=== PATIENT | female | born 1965 ===

== ENCOUNTER 2016-07-04 17:41 | Emergency (ER) | payer MEDICAID ==
[2016-07-04 17:45] VITALS: BMI 14.4
[2016-07-04 17:48] VITALS: O2SAT 100
[2016-07-04] MEDS: Albuterol-Ipratrop 3 mg / 0.5 (3 ml) UD IH SCH ×5 (17:50→18:48)
[2016-07-04] MEDS: Albuterol-Ipratrop 3 mg / 0.5 (3 ml) UD ONE ×2 (17:50→18:23)
--- NOTE | 2016-07-04 17:50 | ED PDOC ---
Arrival/HPI - General Chief Complaint: Shortness Of Breath Time Seen by Provider: 07/04/16 17:41 Historian: Patient - History of Present Illness Narrative History of Present Illness (Text): 07/04/16 17:56 50 year old female whose past medical history includes asthma, thyroid issue, presents to the emergency department with shortness of breath. She states she used her pump with no improvement. c/o of dry cough, and mild sore throat. She states this feels like previous asthma symptoms. No other complaints. 07/04/16 20:00 Time/Duration: < week Symptom Onset: Gradual Symptom Course: Unchanged Modifying Factors (Text): Used pump with no improvement Associated Symptoms (Text): None Past Medical History - Provider Review Nursing Documentation Reviewed: Yes - Infectious Disease Hx of Infectious Diseases: None - Reproductive Menopause: Yes - Cardiac Hx Cardiac Disorders: No - Pulmonary Hx Respiratory Disorders: Yes Hx Asthma: Yes - Neurological Hx Neurological Disorder: No - HEENT Hx HEENT Disorder: No - Renal Hx Renal Disorder: No - Endocrine/Metabolic Hx Endocrine Disorders: Yes Hx Hypothyroidism: Yes - Hematological/Oncological Hx Blood Disorders: No - Integumentary Hx Dermatological Disorder: No - Musculoskeletal/Rheumatological Hx Musculoskeletal Disorders: Yes Hx Back Pain: Yes Hx Herniated Disk: Yes - Gastrointestinal Hx Gastrointestinal Disorders: No - Genitourinary/Gynecological Hx Genitourinary Disorders: No - Psychiatric Hx Psychophysiologic Disorder: No Hx Substance Use: No - Surgical History Hx Dilation and Curettage: Yes Hx Thyroidectomy: Yes - Anesthesia Hx Anesthesia: Yes Hx Anesthesia Reactions: No Hx Malignant Hyperthermia: No - Suicidal Assessment Feels Threatened In Home Enviroment: No Family/Social History - Physician Review Nursing Documentation Reviewed: Yes Family/Social History: Unknown Family HX Smoking Status: Current Some Days Smoker Hx Alcohol Use: No Hx Substance Use: No Allergies/Home Meds Allergies/Adverse Reactions: Allergies tetracycline Allergy (Verified 07/04/16 17:45) RASH vancomycin Allergy (Verified 07/04/16 17:45) RASH Home Medications: Home Meds Medication Instructions Recorded Confirmed Albuterol 0.5% [Albuterol 0.5% 0.5 % IH Q4 PRN 07/04/16 07/04/16 Inhal Afsaneh (2.5 mg/0.5 ml) UD] Albuterol HFA [Ventolin HFA 90 1 puff INH BID 07/04/16 07/04/16 mcg/actuation (8 g)] Review of Systems - Physician Review All systems were reviewed & negative as marked: Yes - Review of Systems Respiratory: SOB Gastrointestinal: absent: Abdominal Pain Neurological: absent: Headache, Dizziness Physical Exam Vital Signs Reviewed: Yes Vital Signs Pulse Resp BP Pulse Ox 07/04/16 17:55 100 07/04/16 17:47 77 14 123/79 100 Temperature: Afebrile Blood Pressure: Normal Pulse: Regular Respiratory Rate: Normal Appearance: Positive for: Well-Appearing, Non-Toxic, Comfortable Pain Distress: None Mental Status: Positive for: Alert and Oriented X 3 - Systems Exam Head: Present: Atraumatic, Normocephalic Pupils: Present: PERRL Extroacular Muscles: Present: EOMI Conjunctiva: Present: Normal Mouth: Present: Moist Mucous Membranes Pharnyx: Present: ERYTHEMA. No: EXUDATE, TONSILS ENLARGED, Peritonsilar Swelling, Uvular Deviation, Muffled/Hoarse Voice, Strider, Soft Palate/Uvular Edema Neck: Present: Normal Range of Motion, Lymphadenopathy, Trachea Midline. No: Meningeal Signs, MIDLINE TENDERNESS, Paraspinal Tenderness, JVD, Bruit Respiratory/Chest: Present: Good Air Exchange, Wheezes (scattered), Decreased Breath Sounds. No: Respiratory Distress, Accessory Muscle Use Cardiovascular: Present: Regular Rate and Rhythm, Normal S1, S2. No: Murmurs Abdomen: Present: Normal Bowel Sounds. No: Tenderness, Distention, Peritoneal Signs Back: Present: Normal Inspection Upper Extremity: Present: Normal Inspection. No: Cyanosis, Edema Lower Extremity: Present: Normal Inspection. No: Edema Neurological: Present: GCS=15, CN II-XII Intact, Speech Normal Skin: Present: Warm, Dry, Normal Color. No: Rashes Psychiatric: Present: Alert, Oriented x 3, Normal Insight, Normal Concentration Medical Decision Making ED Course and Treatment: Impression: 50 year old female whose past medical history includes asthma, thyroid issue, presents to the emergency department with shortness of breath. Differential Diagnosis include but are not limited to: Asthma exacerbation Plan: -- EKG, Chest X-ray -- Duoneb, SoluMedrol -- Labs -- Reassess and disposition Prior Visits: Notes and results from previous visits were reviewed. Patient last seen in ED on 03/26/16 for abdominal pain and discharged home. Progress Notes: Patient is PERC negative. 07/04/16 18:52 Patient reassessed. Wheezing improving. 07/04/16 19:52 pt reassesed. weheezing resolved. perc neg. watching tv in nad. 07/04/16 19:59 pt reports peristent dysphagia, no unilateral swelling, no hot potato voice, uvula midline. suspect tender lymphadeopathy. pt offered ct imaging, declines, prefers to go home, and return with worsening. 07/04/16 20:06 pt has nebulizers at home, does not need rx. - Lab Interpretations Lab Results: 07/04/16 18:05 07/04/16 18:05 Lab Results 07/04/16 18:40: Urine Color Yellow, Urine Appearance Clear, Urine pH 7.0, Ur Specific [place] 1.010, Urine Protein Negative, Urine Glucose (UA) Negative, Urine Ketones Negative, Urine Blood Negative, Urine Nitrate Negative, Urine Bilirubin Negative, Urine Urobilinogen 0.2, Ur Leukocyte Esterase Negative, Urine HCG, Qual Negative 07/04/16 18:05: Sodium 141, Potassium 3.7, Chloride 102, Carbon Dioxide 29, Anion Gap 14, BUN 14, Creatinine 0.7, Est GFR ( Amer) > 60, Est GFR (Non- Af Amer) > 60, Random Glucose 124 H, Calcium 9.5, Magnesium 1.9, Total Bilirubin 0.5, AST 38, ALT 49, Alkaline Phosphatase 92, Lactate Dehydrogenase 450, Total Creatine Kinase 74, Troponin I < 0.01, Total Protein 8.1, Albumin 4.2 , Globulin 3.9, Albumin/Globulin Ratio 1.1 07/04/16 18:05: PT 10.7, INR 0.99, APTT 24.3 07/04/16 18:05: WBC 5.9, RBC 4.59, Hgb 12.5, Hct 36.8, MCV 80.2, MCH 27.2, MCHC 34.0, RDW 12.9, Plt Count 277, MPV 9.6, Gran % 52.0, Lymph % (Auto) 41.9 H, [place] % (Auto) 4.3, Eos % (Auto) 1.5, Baso % (Auto) 0.3, Gran # 3.05, Lymph # 2.5 , [place] # 0.3, Eos # 0.1, Baso # 0.02 - RAD Interpretation Radiology Orders: 07/04/16 17:56 CHEST PORTABLE [RAD] Stat - EKG Interpretation EKG Interpretation (Text): EKG shows NSR at [address]/T wave changes. Interpreted by me. Interpreted by ED Physician: Yes Type: 12 lead EKG - Medication Orders Current Medication Orders: Discontinued Medications Albuterol/Ipratropium (Duoneb 3 Mg/0.5 Mg (3 Ml) Ud) Confirm Administered Dose 3 ml .ROUTE .STK-MED ONE Stop: 07/04/16 17:45 Last Admin: 07/04/16 18:23 Dose: Albuterol/Ipratropium (Duoneb 3 Mg/0.5 Mg (3 Ml) Ud) 3 ml IH Q15M SEPIDEH Stop: 07/04/16 18:31 Last Admin: 07/04/16 18:48 Dose: 3 ml Ketorolac Tromethamine (Toradol) 30 mg IVP STAT STA Stop: 07/04/16 18:52 Last Admin: 07/04/16 19:12 Dose: 30 mg Methylprednisolone (Solu-Medrol) 125 mg IVP STAT STA Stop: 07/04/16 17:58 Last Admin: 07/04/16 18:10 Dose: 125 mg Ondansetron HCl (Zofran Inj) Confirm Administered Dose 4 mg .ROUTE .STK-MED ONE Stop: 07/04/16 18:17 Last Admin: 07/04/16 18:19 Dose: Ondansetron HCl (Zofran Inj) 4 mg IVP STAT STA Stop: 07/04/16 18:18 Last Admin: 07/04/16 18:19 Dose: 4 mg - Scribe Statement The provider has reviewed the documentation as recorded by the Bassam Briseno Provider Scribe Attestation: All medical record entries made by the Bassam were at my direction and personally dictated by me. I have reviewed the chart and agree that the record accurately reflects my personal performance of the history, physical exam, medical decision making, and the department course for this patient. I have also personally directed, reviewed, and agree with the discharge instructions and disposition. Disposition/Present on Arrival - Present on Arrival Any Indicators Present on Arrival: No History of DVT/PE: No History of Uncontrolled Diabetes: No Urinary Catheter: No History of Decub. Ulcer: No History Surgical Site Infection Following: None - Disposition Have Diagnosis and Disposition been Completed?: Yes Diagnosis: Asthma Disposition: HOME/ ROUTINE Disposition Time: 19:54 Patient Problems: Current Active Problems Problem Status Onset Asthma Acute Condition: STABLE Discharge Instructions (ExitCare): Asthma (ED) Additional Instructions: please follow up with your doctor. return to er with worsening symptoms or concerns. Prescriptions: Prednisone 50 mg PO DAILY #5 tablet Referrals: [facility] [Outside] - Follow up with primary [facility] [Outside] - Follow up with primary
[2016-07-04 18:15] LABS: ADD MANUAL DIFF? NO
[2016-07-04 18:21] LABS: BASO # 0.02 K/mm3 (0.0-2.0); BASO % 0.3 % (0.0-3.0); EOS # 0.1 (0.0-0.7); EOS % 1.5 % (1.5-5.0); GRAN # 3.05 (1.4-6.5); HEMATOCRIT 36.8 % (36.0-48.0); LYMPH # 2.5 (1.2-3.4); LYMPH % 41.9 % (22.0-35.0); MEAN CELL VOLUME 80.2 fL (80.0-105.0); MEAN CORPUSCULAR HEMOGLOBIN 27.2 pg (25.0-35.0); MEAN PLATELET VOLUME 9.6 fl (7.0-11.0); MONO # 0.3 (0.1-0.6); MONO % 4.3 % (1.0-6.0); PLATELET COUNT 277 10^3/uL (120.0-450.0); RED CELL DISTRIBUTION WIDTH 12.9 % (11.5-14.5); WHITE BLOOD COUNT 5.9 10^3/ul (4.5-11.0)
[2016-07-04 18:27] LABS: ALB/GLOB RATIO 1.1 (1.1-1.8); ALKALINE PHOSPHATASE 92 U/L (38-133); ALT/SGPT 49 U/L (7-56); AST/SGOT 38 U/L (15-39); BILIRUBIN,TOTAL 0.5 mg/dL (0.2-1.3); BLOOD UREA NITROGEN 14 mg/dL (7-21); CALCIUM 9.5 mg/dL (8.4-10.5); CARBON DIOXIDE 29 mmol/L (21-33); CHLORIDE 102 mmol/L (98-107); GFR AFRICAN-AMERICAN > 60; GLUCOSE,RANDOM 124 mg/dL (70-110); MAGNESIUM 1.9 mg/dL (1.7-2.2); POTASSIUM 3.7 mmol/L (3.6-5.0); SODIUM 141 mmol/L (132-148); TOTAL PROTEIN 8.1 g/dL (5.8-8.3)
[2016-07-04 18:29] LABS: INR 0.99 (0.93-1.08); PARTIAL THROMBOPLASTIN TIME 24.3 Seconds (23.7-30.8)
[2016-07-04 18:46] LABS: TROPONIN I < 0.01 ng/mL
[2016-07-04 19:09] LABS: URINE APPEARANCE CLEAR (CLEAR); URINE BILIRUBIN NEGATIVE (NEGATIVE); URINE BLOOD NEGATIVE (NEGATIVE); URINE COLOR YELLOW (YELLOW); URINE GLUCOSE (UA) NEGATIVE (NEGATIVE); URINE KETONE NEGATIVE (NEGATIVE); URINE LEUKOCYTE ESTERASE NEGATIVE Leu/uL (NEGATIVE); URINE PROTEIN NEGATIVE mg/dL (<30 mg/dL); URINE UROBILINOGEN 0.2 E.U./dL (<1 E.U./dL)
[2016-07-04 20:15] VITALS: BP 114/68; PULSE 87; RESP 16
--- NOTE | 2016-07-05 06:58 | RAD ---
HISTORY: sob COMPARISON: No prior. FINDINGS: LUNGS: No active pulmonary disease. PLEURA: No significant pleural effusion identified, no pneumothorax apparent. CARDIOVASCULAR: Normal. OSSEOUS STRUCTURES: No significant abnormalities. VISUALIZED UPPER ABDOMEN: Normal. OTHER FINDINGS: None. IMPRESSION: No active disease.
--- NOTE | 2016-07-05 14:57 | CARD ---
APPROVED REPORT EKG Measurement Heart [id number] <Conclusion> Normal sinus rhythm Normal ECG
== END 2016-07-04 20:15 | disposition home or self-care (01) ==
LOC: ED 17:41
DX: J45.909 Unspecified asthma, uncomplicated (principal); Z72.0 Tobacco use
CPT/HCPCS: 71010; 80053; 81003; 82550; 83615; 83735; 84484; 84703; 85025; 85610; 85730; 93005; 96374; 96375; 99284; J1885; J2405; J2930

== ENCOUNTER 2016-09-01 09:36 | Emergency (ER) | payer MEDICAID ==
[2016-09-01 09:38] VITALS: BMI 14.4
[2016-09-01 09:49] VITALS: BP 107/74; PULSE 80; RESP 16; TEMP 98.8; O2SAT 98
[2016-09-01] MEDS ORDERED: Sodium Chloride 0.9% 1,000 ML IV STA (09:50)
--- NOTE | 2016-09-01 09:51 | ED PDOC ---
Arrival/HPI - General Chief Complaint: GI Problem Time Seen by Provider: 09/01/16 09:50 Historian: Patient - History of Present Illness Narrative History of Present Illness (Text): 09/01/16 09:51 51 y/o female, pmh including asthma/lumbar radiculopathy, allergic to tetracycline and vancomycin, c/o bodyache and diarrhea started yesterday. Pt. stated that she started to get diarrhea last night, didn't eat anything unusal or eating outside the restaurant for the past 2 days, no recent traveling or use of antibiotic for the past 6 weeks, no coughing or night sweat, admits that she feels fatigue from the diarrhea, no chest pain or shortness of breath, no night sweat, no urinary symptoms, no other medical or psychological complaints. Past Medical History - Provider Review Nursing Documentation Reviewed: Yes - Infectious Disease Hx of Infectious Diseases: None - Reproductive Menopause: Yes - Cardiac Hx Atrial Fibrillation: No Hx Hypertension: Yes - Pulmonary Hx Asthma: Yes Hx Sleep Apnea: Yes (QUESTIONABLE) - Neurological Hx Alzheimer's Disease: No Hx Dementia: No Hx Migraine: No Hx Multiple Sclerosis: No Hx Parkinson's Disease: No Hx Seizures: No Hx Transient Ischemic Attacks (TIA): No - HEENT Hx HEENT Disorder: No - Renal Hx Renal Disorder: No Hx Kidney Stones: No - Endocrine/Metabolic Hx Hyperthyroidism: Yes (multinodular goiters) Hx Hypothyroidism: Yes - Hematological/Oncological Hx Anemia: No Hx Sickle Cell Disease: No - Integumentary Hx Dermatological Disorder: No - Musculoskeletal/Rheumatological Hx Arthritis: No Hx Fractures: No Hx Osteoporosis: No Hx Rheumatoid Arthritis: No - Gastrointestinal Hx Gall Bladder Disease: Yes (GALLSTONES s/p LAP TAJ about 6 yrs ago) - Genitourinary/Gynecological Hx Sexually Transmitted Diseases: No - Psychiatric Hx Anxiety: No Hx Bipolar Disorder: No Hx Depression: No Hx Post Traumatic Stress Disorder: No Hx Schizophrenia: No Hx Substance Use: No - Surgical History Hx Cholecystectomy: Yes - Anesthesia Hx Anesthesia: Yes Hx Anesthesia Reactions: No Hx Malignant Hyperthermia: No - Suicidal Assessment Feels Threatened In Home Enviroment: No Family/Social History - Physician Review Nursing Documentation Reviewed: Yes Family/Social History: Unknown Family HX Smoking Status: Current Some Days Smoker Hx Alcohol Use: No Hx Substance Use: No Allergies/Home Meds Allergies/Adverse Reactions: Allergies tetracycline Allergy (Verified 09/01/16 09:47) RASH vancomycin Allergy (Verified 09/01/16 09:47) RASH Review of Systems - Review of Systems Constitutional: Fatigue. absent: Fevers Eyes: absent: Vision Changes ENT: absent: Hearing Changes Respiratory: absent: SOB, Cough Cardiovascular: absent: Chest Pain Gastrointestinal: Diarrhea. absent: Abdominal Pain, Nausea, Vomiting Musculoskeletal: Myalgias. absent: Arthralgias, Back Pain Skin: absent: Rash, Pruritis Neurological: absent: Headache, Dizziness Psychiatric: absent: Anxiety, Depression Physical Exam Vital Signs Reviewed: Yes Vital Signs Temp Pulse Resp BP Pulse Ox 09/01/16 09:43 98.8 F 80 16 107/74 98 Temperature: Afebrile Blood Pressure: Normal Pulse: Regular Respiratory Rate: Normal Appearance: Positive for: Well-Appearing, Non-Toxic, Comfortable Pain Distress: None Mental Status: Positive for: Alert and Oriented X 3 - Systems Exam Head: Present: Atraumatic, Normocephalic Pupils: Present: PERRL Extroacular Muscles: Present: EOMI Conjunctiva: Present: Normal Mouth: Present: Moist Mucous Membranes Neck: Present: Normal Range of Motion Respiratory/Chest: Present: Clear to Auscultation, Good Air Exchange. No: Respiratory Distress, Accessory Muscle Use Cardiovascular: Present: Regular Rate and Rhythm, Normal S1, S2. No: Murmurs Abdomen: Present: Normal Bowel Sounds. No: Tenderness, Distention, Peritoneal Signs, Rebound, Guarding Back: Present: Normal Inspection. No: CVA Tenderness Upper Extremity: Present: Normal Inspection, NORMAL PULSES. No: Cyanosis, Edema Lower Extremity: Present: Normal Inspection, NORMAL PULSES. No: Edema Neurological: Present: GCS=15, Speech Normal, Motor Func Grossly Intact, Gait Normal, Memory Normal Skin: Present: Warm, Dry, Normal Color. No: Rashes Psychiatric: Present: Alert, Oriented x 3, Normal Insight, Normal Concentration Medical Decision Making ED Course and Treatment: 09/01/16 09:51 -labs/ua -IVF/pepcid -Urine hcg -observe and reassess 09/01/16 10:44 -Labs are non-significant -UA show no UTI -Urine hcg negative -Pt. feeling much better, abdominal examination is still soft with no tenderness or guarding, no clinical indication of the radiology studies at this time. -Discharge home with pepcid, tylenol BRAT diet, no alcohol for 5 days, no fried/ grilled/spicy food for 5 days, soft food diet, stay hydrated, follow up with your own pmd and GI within 2 days, return to the ER for any new or worsening signs or symptoms. - Lab Interpretations Lab Results: 09/01/16 10:07 09/01/16 10:07 Lab Results 09/01/16 10:07: Urine Color Light yellow, Urine Appearance Clear, Urine pH 6.5, Ur Specific [place] <= 1.005, Urine Protein Negative, Urine Glucose (UA) Negative, Urine Ketones Negative, Urine Blood Trace-intact H, Urine Nitrate Negative, Urine Bilirubin Negative, Urine Urobilinogen 0.2, Ur Leukocyte Esterase Negative, Urine RBC 0 - 2, Urine WBC 0 - 2, Ur Epithelial Cells 0 - 2, Urine Bacteria Trace, Urine HCG, Qual Negative 09/01/16 10:07: Sodium 138, Potassium 3.6, Chloride 104, Carbon Dioxide 25, Anion Gap 13, BUN 10, Creatinine 0.6, Est GFR ( Amer) > 60, Est GFR (Non- Af Amer) > 60, Random Glucose 91, Calcium 8.8, Total Bilirubin 0.6, AST 65 H, ALT 73 H, Alkaline Phosphatase 111, Total Protein 7.6, Albumin 4.1, Globulin 3.5 , Albumin/Globulin Ratio 1.2 09/01/16 10:07: WBC 4.0 L D, RBC 4.84, Hgb 13.1, Hct 39.0, MCV 80.6, MCH 27.1, MCHC 33.6, RDW 13.1, Plt Count 235, MPV 9.6, Gran % 70.9 H, Lymph % (Auto) 20.7 L, [place] % (Auto) 6.7 H, Eos % (Auto) 1.5, Baso % (Auto) 0.2, Gran # 2.84, Lymph # 0.8 L, [place] # 0.3, Eos # 0.1, Baso # 0.01 I have reviewed the lab results: Yes - Medication Orders Current Medication Orders: Discontinued Medications Famotidine (Pepcid) 20 mg IVP STAT STA Stop: 09/01/16 09:52 Last Admin: 09/01/16 10:08 Dose: 20 mg Sodium Chloride (Sodium Chloride 0.9%) 1,000 mls @ 999 mls/hr IV .Q1H1M STA Stop: 09/01/16 10:50 Last Admin: 09/01/16 10:05 Dose: 999 mls/hr - PA / CLIENT TECHNOLOGIES ANALYST / Resident Statement / has reviewed & agrees with the documentation as recorded. Disposition/Present on Arrival - Present on Arrival Any Indicators Present on Arrival: No History of DVT/PE: No History of Uncontrolled Diabetes: No Urinary Catheter: No History of Decub. Ulcer: No History Surgical Site Infection Following: None - Disposition Have Diagnosis and Disposition been Completed?: Yes Diagnosis: Gastroenteritis Disposition: HOME/ ROUTINE Disposition Time: 10:25 Patient Plan: Discharge Condition: IMPROVED Additional Instructions: Discharge home with pepcid, tylenol BRAT diet, no alcohol for 5 days, no fried/ grilled/spicy food for 5 days, soft food diet, stay hydrated, follow up with your own pmd and GI within 2 days, return to the ER for any new or worsening signs or symptoms. Prescriptions: Acetaminophen [Tylenol 325mg tab] 2 tab PO QID #35 tab Famotidine [Pepcid] 20 mg PO BID #14 tab Referrals: PCP,NO [Primary Care Provider] - Follow up with primary Kendell Dunlap MD [Staff Provider] - Follow up with primary [facility] [place] [Outside] - Follow up with primary Forms: WORK NOTE
[2016-09-01 10:20] LABS: BASO # 0.01 K/mm3 (0.0-2.0); BASO % 0.2 % (0.0-3.0); EOS # 0.1 (0.0-0.7); EOS % 1.5 % (1.5-5.0); GRAN # 2.84 (1.4-6.5); GRAN % 70.9 % (50.0-68.0); HEMOGLOBIN 13.1 gm/dL (12.0-16.0); LYMPH # 0.8 (1.2-3.4); LYMPH % 20.7 % (22.0-35.0); MEAN CELL VOLUME 80.6 fL (80.0-105.0); MEAN CORPUSCULAR HEMOGLOBIN 27.1 pg (25.0-35.0); MEAN CORPUSCULAR HGB CONC 33.6 g/dl (31.0-37.0); MEAN PLATELET VOLUME 9.6 fl (7.0-11.0); MONO # 0.3 (0.1-0.6); MONO % 6.7 % (1.0-6.0); PLATELET COUNT 235 10^3/uL (120.0-450.0); RBC 4.84 10^6/uL (3.5-6.1); RED CELL DISTRIBUTION WIDTH 13.1 % (11.5-14.5)
[2016-09-01 10:21] LABS: PH,URINE 6.5 (4.7-8.0); URINE BILIRUBIN NEGATIVE (NEGATIVE); URINE BLOOD TRACE-INTACT (NEGATIVE); URINE GLUCOSE (UA) NEGATIVE (NEGATIVE); URINE LEUKOCYTE ESTERASE NEGATIVE Leu/uL (NEGATIVE); URINE NITRATE NEGATIVE (NEGATIVE); URINE PROTEIN NEGATIVE mg/dL (<30 mg/dL); URINE UROBILINOGEN 0.2 E.U./dL (<1 E.U./dL)
[2016-09-01 10:25] LABS: URINE APPEARANCE CLEAR (CLEAR); URINE COLOR LIGHT YELLOW (YELLOW)
[2016-09-01 10:28] LABS: URINE BACTERIA TRACE (NEG); URINE EPITHELIAL CELLS 0 - 2 /hpf (0-5); URINE RBC 0 - 2 /hpf (0-2); URINE WBC 0 - 2 /hpf (0-6)
[2016-09-01 10:29] LABS: ALB/GLOB RATIO 1.2 (1.1-1.8); ALBUMIN 4.1 g/dL (3.0-4.8); ALT/SGPT 73 U/L (7-56); AST/SGOT 65 U/L (15-39); BLOOD UREA NITROGEN 10 mg/dL (7-21); CALCIUM 8.8 mg/dL (8.4-10.5); GFR AFRICAN-AMERICAN > 60; GFR NON-AFRICAN AMERICAN > 60
[2016-09-01 10:59] LABS: HCG,QUALITATIVE URINE NEGATIVE (NEGATIVE)
== END 2016-09-01 11:13 | disposition home or self-care (01) ==
LOC: ED 09:36
DX: K52.9 Noninfective gastroenteritis and colitis, unspecified (principal)
CPT/HCPCS: 80053; 81001; 84703; 85025; 96374; 99284; J7040

== ENCOUNTER 2017-04-17 14:46 | Inpatient (IN) | payer BC, MEDICAID ==
[2017-04-17 15:34] VITALS: BMI 22.7
[2017-04-17 17:49] LABS: URINE BILIRUBIN NEGATIVE (NEGATIVE); URINE BLOOD NEGATIVE (NEGATIVE); URINE GLUCOSE (UA) NEGATIVE (NEGATIVE); URINE LEUKOCYTE ESTERASE NEGATIVE Leu/uL (NEGATIVE); URINE NITRATE NEGATIVE (NEGATIVE); URINE PROTEIN NEGATIVE mg/dL (<30 mg/dL); URINE UROBILINOGEN 0.2 E.U./dL (<1 E.U./dL)
[2017-04-17 17:52] LABS: URINE APPEARANCE CLEAR (CLEAR); URINE COLOR YELLOW (YELLOW)
--- NOTE | 2017-04-17 20:03 | CT ---
EXAM: CT Abdomen and Pelvis Without Intravenous Contrast EXAM DATE/TIME: 04/17/2017 4:28 PM CLINICAL HISTORY: The patient age is 51 years old and is female; Pain; Abdominal pain; Flank; Right; Prior surgery; Surgery date: 6+ months; Surgery type: HX cholecystectomy, HX tubal ligation; Additional info: Right flank pain Facility exam id and description: Ct abdpelscon abd pelvis w/o po or iv cont TECHNIQUE: Axial computed tomography images of the abdomen and pelvis without intravenous contrast. All CT scans at this facility use one or more dose reduction techniques, viz.: automated exposure control; ma/kV adjustment per patient size (including targeted exams where dose is matched to indication; i.e. head); or iterative reconstruction technique. Coronal and sagittal reformatted images were created and reviewed. COMPARISON: No relevant prior studies available. FINDINGS: Lower thorax: No acute findings. ABDOMEN: Liver: Unremarkable. No mass. Gallbladder and bile ducts: Cholecystectomy clips are visualized. Pancreas: Normal contour. No ductal dilation. Spleen: There is lobulation of the spleen versus a small splenule. No splenomegaly. Adrenals: No mass. Kidneys and ureters: There is an 8mm nonobstructing right renal calculus. There is no hydronephrosis bilaterally. No obstructive calculi are identified within the ureters bilaterally. Stomach and bowel: Colonic diverticula are identified, without acute inflammatory stranding of the adjacent mesentery. Appendix: No findings to suggest acute appendicitis. PELVIS: Bladder: No stones. Reproductive: A calcification or clip is seen within each adnexa. ABDOMEN and PELVIS: Intraperitoneal space: There is a small surgical clip within the left posterior inferior pelvis. Bones/joints: Mild degenerative changes are visualized within the lumbar spine. Soft tissues: There is minimal herniation of fat within the umbilicus. Vasculature: There is minimal atherosclerosis of the aortic arch. No abdominal aortic aneurysm. Lymph nodes: No enlarged lymph nodes. IMPRESSION: 1. There is an 8mm nonobstructing right renal calculus. There is no hydronephrosis bilaterally. No obstructive calculi are identified within the ureters bilaterally. 2. Diverticulosis. 3. Incidental/non-acute findings are described above.
[2017-04-17] MEDS ORDERED: Sodium Chloride 0.9% 1,000 ML IV STA (20:11)
--- NOTE | 2017-04-17 21:37 | ED PDOC ---
Arrival/HPI - General Chief Complaint: Back Pain Time Seen by Provider: 04/17/17 15:58 Historian: Patient - History of Present Illness Narrative History of Present Illness (Text): 04/17/17 21:33 51yo female with PMhx of hypothyroid who present with one week history of right flank pain with associated nausea. Stats pain became increasingly worse. Sharp and constant. she saw her PMD today and was referred to the ED. She denies vomiting , hematuria, dysuria, urinary frequency, fever, chills, any other complaint. Past Medical History - Provider Review Nursing Documentation Reviewed: Yes - Infectious Disease Hx of Infectious Diseases: None - Reproductive Menopause: Yes - Cardiac Hx Cardiac Disorders: No - Pulmonary Hx Respiratory Disorders: Yes Hx Asthma: Yes Hx Sleep Apnea: Yes (QUESTIONABLE) - Neurological Hx Alzheimer's Disease: No Hx Dementia: No Hx Migraine: No Hx Multiple Sclerosis: No Hx Parkinson's Disease: No Hx Seizures: No Hx Transient Ischemic Attacks (TIA): No - HEENT Hx HEENT Disorder: No - Renal Hx Renal Disorder: No Hx Kidney Stones: No - Endocrine/Metabolic Hx Endocrine Disorders: Yes Hx Hyperthyroidism: Yes (multinodular goiters) Hx Hypothyroidism: Yes - Hematological/Oncological Hx Anemia: No Hx Sickle Cell Disease: No - Integumentary Hx Dermatological Disorder: No - Musculoskeletal/Rheumatological Hx Arthritis: No Hx Fractures: No Hx Osteoporosis: No Hx Rheumatoid Arthritis: No - Gastrointestinal Hx Gastrointestinal Disorders: Yes Hx Gall Bladder Disease: Yes (GALLSTONES s/p LAP TAJ about 6 yrs ago) - Genitourinary/Gynecological Hx Genitourinary Disorders: No Hx Sexually Transmitted Diseases: No - Psychiatric Hx Psychophysiologic Disorder: No Hx Anxiety: No Hx Bipolar Disorder: No Hx Depression: No Hx Post Traumatic Stress Disorder: No Hx Schizophrenia: No Hx Substance Use: No - Surgical History Hx Cholecystectomy: Yes Hx Tubal Ligation: Yes - Anesthesia Hx Anesthesia: Yes Hx Anesthesia Reactions: No Hx Malignant Hyperthermia: No - Suicidal Assessment Feels Threatened In Home Enviroment: No Family/Social History - Physician Review Nursing Documentation Reviewed: Yes Family/Social History: Unknown Family HX Smoking Status: Current Some Days Smoker Hx Alcohol Use: No Hx Substance Use: No Allergies/Home Meds Allergies/Adverse Reactions: Allergies tetracycline Allergy (Verified 04/17/17 15:34) RASH vancomycin Allergy (Verified 04/17/17 15:34) RASH Home Medications: Home Meds Medication Instructions Recorded Confirmed Levothyroxine [Synthroid] 500 mcg PO DAILY 04/17/17 04/17/17 Review of Systems - Physician Review All systems were reviewed & negative as marked: Yes - Review of Systems Constitutional: Normal Eyes: Normal ENT: Normal Respiratory: Normal Cardiovascular: Normal Gastrointestinal: Abdominal Pain (Right flank) Genitourinary Female: Normal Musculoskeletal: Back Pain Skin: Normal Neurological: Normal Endocrine: Normal Hemo/Lymphatic: Normal Psychiatric: Normal Physical Exam Vital Signs Reviewed: Yes Vital Signs Temp Pulse Resp BP Pulse Ox 04/17/17 23:17 70 18 142/98 H 100 04/17/17 21:39 68 16 121/82 98 04/17/17 17:53 62 16 126/89 98 04/17/17 15:29 98.5 F 71 16 125/80 98 Temperature: Afebrile Blood Pressure: Normal Pulse: Regular Respiratory Rate: Normal Appearance: Positive for: Well-Appearing, Non-Toxic, Comfortable Pain Distress: None Mental Status: Positive for: Alert and Oriented X 3 - Systems Exam Head: Present: Atraumatic, Normocephalic Pupils: Present: PERRL Extroacular Muscles: Present: EOMI Conjunctiva: Present: Normal Mouth: Present: Moist Mucous Membranes Neck: Present: Normal Range of Motion Respiratory/Chest: Present: Clear to Auscultation, Good Air Exchange. No: Respiratory Distress, Accessory Muscle Use Cardiovascular: Present: Regular Rate and Rhythm, Normal S1, S2. No: Murmurs Abdomen: Present: Tenderness (Right flank), Normal Bowel Sounds, Other (Soft). No: Distention, Peritoneal Signs, Rebound, Guarding, McBurney's Point Tender, Rovsing's Sign Present Back: Present: CVA Tenderness (Right) Upper Extremity: Present: Normal Inspection. No: Cyanosis, Edema Lower Extremity: Present: Normal Inspection. No: Edema Neurological: Present: GCS=15, CN II-XII Intact, Speech Normal Skin: Present: Warm, Dry, Normal Color. No: Rashes Psychiatric: Present: Alert, Oriented x 3, Normal Insight, Normal Concentration Medical Decision Making ED Course and Treatment: 04/18/17 01:22 PT in ED for stated history. Lab was unremarkable. On re evaluation pt continued to complain of pain after medication was given. Lab was unremarkable. Pt was hydrated. abdominal/Pelvis CT. IMPRESSION: 1. There is an 8mm nonobstructing right renal calculus. There is no hydronephrosis bilaterally. No obstructive calculi are identified within the ureters bilaterally. 2. Diverticulosis. 3. Incidental/non-acute findings are described above. PT will be admitted secondary to her continued pain complain and CT finding. Case was [facility] [place] and pt was admitted Case was also [facility] Result and plan was D the pt and she agreed - Lab Interpretations Lab Results: 04/17/17 21:30 04/17/17 21:30 Lab Results 04/17/17 21:30: PT 11.3, INR 0.99, APTT 31.7 04/17/17 21:30: Sodium 141, Potassium 3.6, Chloride 102, Carbon Dioxide 28, Anion Gap 15, BUN 10, Creatinine 0.8, Est GFR ( Amer) > 60, Est GFR (Non- Af Amer) > 60, Random Glucose 91, Calcium 9.9, Total Bilirubin 0.4, AST 42 H, ALT 50, Alkaline Phosphatase 90, Total Protein 8.2, Albumin 4.6, Globulin 3.6, Albumin/Globulin Ratio 1.3 04/17/17 21:30: WBC 6.1 D, RBC 5.02, Hgb 13.9, Hct 41.6, MCV 82.9, MCH 27.7, MCHC 33.4, RDW 13.3, Plt Count 311, MPV 9.6, Gran % 46.5 L, Lymph % (Auto) 44.3 H, [place] % (Auto) 6.6 H, Eos % (Auto) 2.3, Baso % (Auto) 0.3, Gran # 2.83, Lymph # (Auto) 2.7, [place] # (Auto) 0.4, Eos # (Auto) 0.1, Baso # (Auto) 0.02 04/17/17 18:00: Urine HCG, Qual Negative 04/17/17 18:00: Beta HCG, Quant < 2.39 04/17/17 17:30: Urine Color Yellow, Urine Appearance Clear, Urine pH 6.0, Ur Specific [place] 1.010, Urine Protein Negative, Urine Glucose (UA) Negative, Urine Ketones Negative, Urine Blood Negative, Urine Nitrate Negative, Urine Bilirubin Negative, Urine Urobilinogen 0.2, Ur Leukocyte Esterase Negative - RAD Interpretation Radiology Orders: 04/17/17 16:28 ABD & PELVIS W/O PO OR IV CONT [CT] Stat - Medication Orders Current Medication Orders: Acetaminophen (Tylenol 325mg Tab) 650 mg PO QID SEPIDEH Famotidine (Pepcid) 20 mg PO BID SEPIDEH Famotidine (Pepcid) 20 mg PO ONCE ONE Stop: 04/18/17 01:31 Ketorolac Tromethamine (Toradol) 15 mg IVP TID SEPIDEH Levothyroxine Sodium (Synthroid) 500 mcg PO DAILY SEPIDEH Discontinued Medications Sodium Chloride (Sodium Chloride 0.9%) 1,000 mls @ 999 mls/hr IV .Q1H1M STA Stop: 04/17/17 21:11 Last Admin: 04/17/17 21:48 Dose: 999 mls/hr eMAR Start Stop Document 04/17/17 21:48 AD (Rec: 04/17/17 21:49 AD [id number]) Intravenous Solution Start Date 04/17/17 Start Time 21:49 Sodium Chloride (Sodium Chloride 0.9%) 1,000 mls @ 999 mls/hr IV .Q1H1M STA Stop: 04/18/17 01:03 Ketorolac Tromethamine (Toradol) 60 mg IM STAT STA Stop: 04/17/17 16:30 Last Admin: 04/17/17 18:39 Dose: 60 mg MAR Pain Assessment Document 04/17/17 18:39 SF (Rec: 04/17/17 18:40 SF [id number]) Pain Reassessment Is this a pain reassessment? Yes Sleep Is patient sleeping during reassessment? No Presence of Pain Presence of Pain Yes Pain Scale Used Pain Scale Used Numeric IM Administration Charges Document 04/17/17 18:39 SF (Rec: 04/17/17 18:40 SF [facility] [id number]) Injection Site MAR Injection Site Left Deltoid Charges for Administration # of IM Administrations 1 Morphine Sulfate (Morphine) 4 mg IVP STAT STA Stop: 04/17/17 21:51 Last Admin: 04/17/17 22:51 Dose: 4 mg MAR Pain Assessment Document 04/17/17 22:51 SS (Rec: 04/17/17 22:51 SS [id number]) Pain Reassessment Is this a pain reassessment? Yes Sleep Is patient sleeping during reassessment? No Presence of Pain Presence of Pain Yes IVP Administration Document 04/17/17 22:51 SS (Rec: 04/17/17 22:51 SS [id number]) Charges for Administration # of IVP Administrations 1 Ondansetron HCl (Zofran Inj) 4 mg IVP STAT STA Stop: 04/18/17 00:49 Last Admin: 04/18/17 01:02 Dose: 4 mg IVP Administration Document 04/18/17 01:02 BR (Rec: 04/18/17 01:02 BR [id number]) Charges for Administration # of IVP Administrations 1 Disposition/Present on Arrival - Present on Arrival Any Indicators Present on Arrival: No History of DVT/PE: No History of Uncontrolled Diabetes: No Urinary Catheter: No History of Decub. Ulcer: No History Surgical Site Infection Following: None - Disposition Have Diagnosis and Disposition been Completed?: Yes Diagnosis: Nephrolithiasis Disposition: HOSPITALIZED Disposition Time: 22:00 Patient Plan: Admission Patient Problems: Current Active Problems Problem Status Onset Nephrolithiasis Acute Condition: FAIR
[2017-04-17] MEDS ORDERED: Morphine 4 mg/ml ISec IVP STA (21:50)
[2017-04-17 21:59] LABS: BASO # 0.02 K/mm3 (0.0-2.0); BASO % 0.3 % (0.0-3.0); EOS # 0.1 (0.0-0.7); EOS % 2.3 % (1.5-5.0); GRAN # 2.83 (1.4-6.5); GRAN % 46.5 % (50.0-68.0); HEMOGLOBIN 13.9 g/dL (12.0-16.0); LYMPH # 2.7 (1.2-3.4); LYMPH % 44.3 % (22.0-35.0); MEAN CELL VOLUME 82.9 fl (80.0-105.0); MEAN CORPUSCULAR HEMOGLOBIN 27.7 pg (25.0-35.0); MEAN CORPUSCULAR HGB CONC 33.4 g/dl (31.0-37.0); MEAN PLATELET VOLUME 9.6 fl (7.0-11.0); MONO # 0.4 (0.1-0.6); MONO % 6.6 % (1.0-6.0); RBC 5.02 10^6/uL (3.5-6.1); RED CELL DISTRIBUTION WIDTH 13.3 % (11.5-14.5); WHITE BLOOD COUNT 6.1 10^3/ul (4.5-11.0)
[2017-04-17 22:07] LABS: ALB/GLOB RATIO 1.3 (1.1-1.8); ALBUMIN 4.6 g/dL (3.0-4.8); ALT/SGPT 50 U/L (7-56); AST/SGOT 42 U/L (14-36); BLOOD UREA NITROGEN 10 mg/dL (7-21); CALCIUM 9.9 mg/dL (8.4-10.5); GFR AFRICAN-AMERICAN > 60; GFR NON-AFRICAN AMERICAN > 60
[2017-04-17 22:10] LABS: INR 0.99 (0.93-1.08); PARTIAL THROMBOPLASTIN TIME 31.7 Seconds (25.1-36.5); PROTHROMBIN TIME 11.3 SECONDS (9.4-12.5)
[2017-04-18] MEDS ORDERED: Sodium Chloride 0.9% 1,000 ML IV STA (00:03)
--- NOTE | 2017-04-18 06:48 | CP.PCM.PN ---
Subjective - Date & Time of Evaluation Date of Evaluation: 04/18/17 Time of Evaluation: 06:47 - Subjective Subjective: Seen at bedside for right flank pain. Had nausea earlier. No other complaints. This 51 year old woman has history of asthma, laparoscopic cholecystectomy 6 years ago comes in with complaints of nausea and right flank pain, RUQ pain. Medical record was reviewed. Objective - Vital Signs/Intake and Output Vital Signs (last 24 hours): Temp Pulse Resp BP Pulse Ox 98.5 F 70 18 142/98 H 100 04/17/17 15:29 04/17/17 23:17 04/17/17 23:17 04/17/17 23:17 04/17/17 23:17 - Medications Medications: Current Medications Acetaminophen (Tylenol 325mg Tab) 650 mg PO QID SEPIDEH Famotidine (Pepcid) 20 mg PO BID SEPIDEH Ketorolac Tromethamine (Toradol) 15 mg IVP TID SEPIDEH Levothyroxine Sodium (Synthroid) 500 mcg PO DAILY SEPIDEH - Labs Labs: PT 11.3 SECONDS (9.4-12.5) 04/17/17 21:30 INR 0.99 (0.93-1.08) 04/17/17 21:30 APTT 31.7 Seconds (25.1-36.5) 04/17/17 21:30 Lab Studies 04/17/17 04/17/17 04/17/17 Range/Units 21:30 21:30 21:30 WBC 6.1 D (4.5-11.0) 10^3/ul RBC 5.02 (3.5-6.1) 10^6/uL Hgb 13.9 (12.0-16.0) g/dL Hct 41.6 (36.0-48.0) % MCV 82.9 (80.0-105.0) fl MCH 27.7 (25.0-35.0) pg MCHC 33.4 (31.0-37.0) g/dl RDW 13.3 (11.5-14.5) % Plt Count 311 (120.0-450.0) 10^3/uL MPV 9.6 (7.0-11.0) fl Gran % 46.5 L (50.0-68.0) % Lymph % (Auto) 44.3 H (22.0-35.0) % [place] % (Auto) 6.6 H (1.0-6.0) % Eos % (Auto) 2.3 (1.5-5.0) % Baso % (Auto) 0.3 (0.0-3.0) % Gran # 2.83 (1.4-6.5) Lymph # (Auto) 2.7 (1.2-3.4) [place] # (Auto) 0.4 (0.1-0.6) Eos # (Auto) 0.1 (0.0-0.7) Baso # (Auto) 0.02 (0.0-2.0) K/mm3 PT 11.3 (9.4-12.5) SECONDS INR 0.99 (0.93-1.08) APTT 31.7 (25.1-36.5) Seconds Sodium 141 (132-148) mmol/L Potassium 3.6 (3.6-5.0) mmol/L Chloride 102 (98-107) mmol/L Carbon Dioxide 28 (21-33) mmol/L Anion Gap 15 (10-20) BUN 10 (7-21) mg/dL Creatinine 0.8 (0.7-1.2) mg/dl Est GFR ( Amer) > 60 Est GFR (Non-Af Amer) > 60 Random Glucose 91 (70-110) mg/dL Calcium 9.9 (8.4-10.5) mg/dL Total Bilirubin 0.4 (0.2-1.3) mg/dL AST 42 H (14-36) U/L ALT 50 (7-56) U/L Alkaline Phosphatase 90 (38-126) U/L Total Protein 8.2 (5.8-8.3) g/dL Albumin 4.6 (3.0-4.8) g/dL Globulin 3.6 gm/dL Albumin/Globulin Ratio 1.3 (1.1-1.8) Beta HCG, Quant (0-6.15) mIU/mL Urine Color (YELLOW) Urine Appearance (CLEAR) Urine pH (4.7-8.0) Ur Specific [place] (1.005-1.035) Urine Protein (<30 mg/dL) mg/dL Urine Glucose (UA) (NEGATIVE) mg/dL Urine Ketones (NEGATIVE) mg/dL Urine Blood (NEGATIVE) Urine Nitrate (NEGATIVE) Urine Bilirubin (NEGATIVE) Urine Urobilinogen (<1 E.U./dL) E.U./dL Ur Leukocyte Esterase (NEGATIVE) Nina/uL Urine HCG, Qual (NEGATIVE) 04/17/17 04/17/17 04/17/17 Range/Units 18:00 18:00 17:30 WBC (4.5-11.0) 10^3/ul RBC (3.5-6.1) 10^6/uL Hgb (12.0-16.0) g/dL Hct (36.0-48.0) % MCV (80.0-105.0) fl MCH (25.0-35.0) pg MCHC (31.0-37.0) g/dl RDW (11.5-14.5) % Plt Count (120.0-450.0) 10^3/uL MPV (7.0-11.0) fl Gran % (50.0-68.0) % Lymph % (Auto) (22.0-35.0) % [place] % (Auto) (1.0-6.0) % Eos % (Auto) (1.5-5.0) % Baso % (Auto) (0.0-3.0) % Gran # (1.4-6.5) Lymph # (Auto) (1.2-3.4) [place] # (Auto) (0.1-0.6) Eos # (Auto) (0.0-0.7) Baso # (Auto) (0.0-2.0) K/mm3 PT (9.4-12.5) SECONDS INR (0.93-1.08) APTT (25.1-36.5) Seconds Sodium (132-148) mmol/L Potassium (3.6-5.0) mmol/L Chloride (98-107) mmol/L Carbon Dioxide (21-33) mmol/L Anion Gap (10-20) BUN (7-21) mg/dL Creatinine (0.7-1.2) mg/dl Est GFR ( Amer) Est GFR (Non-Af Amer) Random Glucose (70-110) mg/dL Calcium (8.4-10.5) mg/dL Total Bilirubin (0.2-1.3) mg/dL AST (14-36) U/L ALT (7-56) U/L Alkaline Phosphatase (38-126) U/L Total Protein (5.8-8.3) g/dL Albumin (3.0-4.8) g/dL Globulin gm/dL Albumin/Globulin Ratio (1.1-1.8) Beta HCG, Quant < 2.39 (0-6.15) mIU/mL Urine Color Yellow (YELLOW) Urine Appearance Clear (CLEAR) Urine pH 6.0 (4.7-8.0) Ur Specific [place] 1.010 (1.005-1.035) Urine Protein Negative (<30 mg/dL) mg/dL Urine Glucose (UA) Negative (NEGATIVE) mg/dL Urine Ketones Negative (NEGATIVE) mg/dL Urine Blood Negative (NEGATIVE) Urine Nitrate Negative (NEGATIVE) Urine Bilirubin Negative (NEGATIVE) Urine Urobilinogen 0.2 (<1 E.U./dL) E.U./dL Ur Leukocyte Esterase Negative (NEGATIVE) Nina/uL Urine HCG, Qual Negative (NEGATIVE) - Constitutional Appears: Well, No Acute Distress - Head Exam Head Exam: ATRAUMATIC, NORMAL INSPECTION, NORMOCEPHALIC - Eye Exam Eye Exam: Normal appearance - ENT Exam ENT Exam: Normal External Ear Exam - Neck Exam Neck Exam: Normal Inspection - Respiratory Exam Respiratory Exam: NORMAL BREATHING PATTERN - Cardiovascular Exam Cardiovascular Exam: absent: JVD - GI/Abdominal Exam GI & Abdominal Exam: Tenderness (RUQ), Normal Bowel Sounds. absent: Distended, Firm, Guarding, Rigid, Soft, Hernia, Mass, Organomegaly, Pulsatile Mass, Rebound - Rectal Exam Rectal Exam: Deferred - Exam Additional comments: Deferred. - Extremities Exam Extremities Exam: Normal Inspection - Back Exam Back Exam: NORMAL INSPECTION - Neurological Exam Neurological Exam: Alert, Oriented x3 - Psychiatric Exam Psychiatric exam: Normal Affect, Normal Mood - Skin Skin Exam: Normal Color Assessment and Plan - Assessment and Plan (Free Text) Assessment: Right flank pain. RUQ pain. History of asthma. History of hypothyroidism. Elevated AST. Plan: Toradol 15 mg IV was given twice. Continue management as per primary physician.
--- NOTE | 2017-04-18 09:30 | RAD ---
HISTORY: abdominal pain COMPARISON: No prior. FINDINGS: BOWEL: No evidence of acute mechanical bowel obstruction. Moderate amount of stool seen throughout the large bowel consistent with mild constipation. BONES: The re- demonstrated are on nonspecific is well-circumscribed cystic changes right inferolateral pubic ramus OTHER FINDINGS: Previously noted 8 mm calculus upper pole right kidney is again seen unchanged. Cholecystectomy clips again noted. There is also metallic clip in the left aspect of the pelvis likely fallen into this location on during surgery. IMPRESSION: 8 mm calculus upper pole right kidney unchanged.
[2017-04-18] MEDS ORDERED: Levothyroxine 100 MCG TAB PO SCH (10:00)
[2017-04-18] MEDS: Oxycodone/Acetaminophen 5/325 mg Tab PO PRN ×3 (12:47→22:19)
[2017-04-18] MEDS: Sodium Chloride 0.9% 1,000 ML IV SCH (17:48)
[2017-04-18 23:34] LABS: URINE BILIRUBIN NEGATIVE (NEGATIVE); URINE BLOOD NEGATIVE (NEGATIVE); URINE GLUCOSE (UA) NEGATIVE (NEGATIVE); URINE LEUKOCYTE ESTERASE NEGATIVE Leu/uL (NEGATIVE); URINE NITRATE NEGATIVE (NEGATIVE); URINE PROTEIN NEGATIVE mg/dL (<30 mg/dL); URINE UROBILINOGEN 0.2 E.U./dL (<1 E.U./dL)
[2017-04-18 23:36] LABS: URINE APPEARANCE CLEAR (CLEAR); URINE COLOR YELLOW (YELLOW)
[2017-04-19] MEDS: Levothyroxine 100 MCG TAB PO SCH (05:07)
--- NOTE | 2017-04-19 05:42 | HP ---
CHIEF COMPLAINT: Flank pain, nauseousness. HISTORY OF PRESENT ILLNESS: Ms. Nadine Verduzco is a 51-year-old female with a history of hypothyroidism, came to the emergency room with the history of one week right flank pain with associated with nausea, vomiting; states the pain becoming increasing worse, sharp and constant. She went to see her primary care physician who told her that she should go to emergency room. Denied fever, hematuria, dysuria, urinary symptoms. No headache, no dizziness, but was feeling nauseous. We admitted the patient and called surgical consult. PAST MEDICAL HISTORY: Asthma, sleep apnea, multinodular goiter, hyperthyroidism, history of gallstone, status post lap bree about 6 years ago, tubal ligation. FAMILY HISTORY: Father and mother noncontributory. HABITS: Currently smoking. Alcohol denied. Substance abuse denied. ALLERGIES: PATIENT IS ALLERGIC WITH TETRACYCLINE AND VANCOMYCIN. HOME MEDICATION: Levothyroxine. REVIEW OF SYSTEMS: Patient seen and examined on the bedside, complaining about nauseousness and flank pain. No swelling of the leg. No dysuria. No rash on the skin. No dizziness. No headache. PHYSICAL EXAMINATION: VITAL SIGNS: Temperature 98.5, pulse 71, respiratory rate 16, blood pressure 125/80. HEENT: Head, normocephalic and atraumatic. Eyes, PERRLA. Extraocular muscles intact. Conjunctivae are clear. Nose is patent. Mucous membranes moist. NECK: Supple. No carotid bruit. No JVD or thyromegaly. CHEST: Bilaterally symmetrical. HEART: S1 and S2 positive. LUNGS: Clear to auscultation. ABDOMEN: Soft. Bowel sounds present. No organomegaly. Right flank tenderness. EXTREMITIES: No edema. No cyanosis. NEUROLOGIC: Patient is awake and alert. Moving all 4 extremities. No focal deficit. LABORATORY DATA: White blood cells 6.1, hemoglobin 13.9, hematocrit 41.6, platelets 311. Sodium 141, potassium 3.6, BUN 10, creatinine 0.8, glucose 91. ASSESSMENT AND PLAN: Ms. Nadine Verduzco is a 51-year-old female, came with nephrolithiasis, nauseousness, history of multinodular goiter, hyper/hypothyroidism, history of cholelithiasis, status post laparoscopic cholecystectomy done 6 years ago, history of tubal ligation. We admitted the patient. CAT scan of the abdomen and pelvis done. Abdominal x-ray done, reviewed by me. There is an 8-mm non-obstructing right renal calculus, there is no hydronephrosis bilaterally, no obstructive calculi identified within the ureters bilaterally, diverticulosis. Urology consult called with Dr. Aristeo Casanova. Flomax given by me. I put her on Pepcid, gastrointestinal prophylaxis. Oxycodone given by Dr. Aristeo Casanova. Getting intravenous fluids. Levothyroxine started. Getting Zofran for nauseousness. We will repeat lab. I added Flomax. Screening the urine. Waiting for results from urologist. We will follow up. Dayanara Lassiter MD
[2017-04-19 07:01] VITALS: O2SAT 98
[2017-04-19 07:03] LABS: MEAN CELL VOLUME 84.4 fl (80.0-105.0); MEAN CORPUSCULAR HGB CONC 31.9 g/dl (31.0-37.0); MEAN PLATELET VOLUME 9.6 fl (7.0-11.0); RBC 3.97 10^6/uL (3.5-6.1); RED CELL DISTRIBUTION WIDTH 13.5 % (11.5-14.5); WHITE BLOOD COUNT 3.6 10^3/ul (4.5-11.0)
[2017-04-19 07:23] LABS: ALB/GLOB RATIO 1.2 (1.1-1.8); ALBUMIN 3.1 g/dL (3.0-4.8); ALT/SGPT 59 U/L (7-56); AST/SGOT 50 U/L (14-36); BLOOD UREA NITROGEN 12 mg/dL (7-21); CALCIUM 8.4 mg/dL (8.4-10.5); GFR AFRICAN-AMERICAN > 60; GFR NON-AFRICAN AMERICAN > 60; HDL CHOLESTEROL 42 mg/dL (29-60)
[2017-04-19 07:25] LABS: HEMOGLOBIN 10.7 g/dL (12.0-16.0)
[2017-04-19 07:31] LABS: LDL CHOLESTEROL 87 mg/dL (0-129)
[2017-04-19] MEDS: Oxycodone/Acetaminophen 5/325 mg Tab PO PRN ×3 (07:55→19:51)
--- NOTE | 2017-04-19 08:20 | PCM.URO ---
Urology Progress Note - Objective Lab Studies: Reviewed (plans : for cysto today if the operating is available for now -- pt is npo //and we are awaiting operating time for cysto //stent) Lab Results Last 24 Hours: Laboratory Results - last 24 hr 04/18/17 04/19/17 04/19/17 23:00 06:30 06:30 WBC 3.6 L D RBC 3.97 Hgb 10.7 L D Hct 33.5 L MCV 84.4 MCH 27.0 MCHC 31.9 RDW 13.5 Plt Count 221 MPV 9.6 Sodium 143 Potassium 3.9 Chloride 109 H Carbon Dioxide 25 Anion Gap 13 BUN 12 Creatinine 0.8 Est GFR ( Amer) > 60 Est GFR (Non-Af Amer) > 60 Random Glucose 85 Calcium 8.4 Total Bilirubin 0.2 AST 50 H ALT 59 H Alkaline Phosphatase 58 Total Protein 5.8 Albumin 3.1 Globulin 2.7 Albumin/Globulin Ratio 1.2 Triglycerides 53 Cholesterol 149 LDL Cholesterol Direct 87 HDL Cholesterol 42 TSH 3rd Generation Urine Color Yellow Urine Appearance Clear Urine pH 6.0 Ur Specific [place] 1.025 Urine Protein Negative Urine Glucose (UA) Negative Urine Ketones Negative Urine Blood Negative Urine Nitrate Negative Urine Bilirubin Negative Urine Urobilinogen 0.2 Ur Leukocyte Esterase Negative 04/19/17 06:30 WBC RBC Hgb Hct MCV MCH MCHC RDW Plt Count MPV Sodium Potassium Chloride Carbon Dioxide Anion Gap BUN Creatinine Est GFR ( Amer) Est GFR (Non-Af Amer) Random Glucose Calcium Total Bilirubin AST ALT Alkaline Phosphatase Total Protein Albumin Globulin Albumin/Globulin Ratio Triglycerides Cholesterol LDL Cholesterol Direct HDL Cholesterol TSH 3rd Generation 38.80 H Urine Color Urine Appearance Urine pH Ur Specific [place] Urine Protein Urine Glucose (UA) Urine Ketones Urine Blood Urine Nitrate Urine Bilirubin Urine Urobilinogen Ur Leukocyte Esterase Intake & Output: Intake & Output 04/18/17 04/19/17 04/19/17 18:59 06:59 18:59 Intake Total 600 Balance 600 Intake: Oral 600 Other: # Voids Urine, Voided 4 # Bowel Movements 1 Vital Signs: Vital Signs - 24 hr 04/18/17 04/19/17 14:00 00:00 Temperature 98.2 F 98.6 F Pulse Rate 68 66 Respiratory 20 80 H Rate Blood Pressure 136/90 124/88 O2 Sat by Pulse 100 98 Oximetry
[2017-04-19] MEDS: cefTRIAXone 1 gm 1 GM/100 ML BAG IVPB SCH (09:37)
[2017-04-19] MEDS ORDERED: Iohexol 240 (50 ml) ONE (17:06)
[2017-04-19] MEDS ORDERED: Propofol 10 mg/ml Inj (20 ML) ONE (17:45)
[2017-04-19] MEDS ORDERED: Lidocaine 1% Inj (20ml) ONE (17:47)
[2017-04-19] MEDS ORDERED: HYDROmorphone 0.5 mg/0.5 ml ISec IVP PRN (18:34)
[2017-04-19] MEDS ORDERED: Lactated Ringer's 1,000 ML IV SCH (18:45)
--- NOTE | 2017-04-19 18:45 | CP.PCM.CON ---
Past Patient History - Infectious Disease Hx of Infectious Diseases: None - Past Medical History & Family History Past Medical History?: Yes - Past Social History Smoking Status: Light Smoker < 10 Cigarettes Daily - CARDIAC Hx Pacemaker: No - PULMONARY Hx Respiratory Disorders: Yes Hx Asthma: Yes Hx Sleep Apnea: Yes (QUESTIONABLE) - NEUROLOGICAL Hx Paralysis: No - HEENT Hx HEENT Problems: No - RENAL Hx Chronic Kidney Disease: No Hx Kidney Stones: No - ENDOCRINE/METABOLIC Hx Endocrine Disorders: Yes Hx Hyperthyroidism: Yes (multinodular goiters) Hx Hypothyroidism: Yes - HEMATOLOGICAL/ONCOLOGICAL Hx Blood Transfusions: No Hx Blood Transfusion Reaction: No - INTEGUMENTARY Hx Dermatological Problems: No - MUSCULOSKELETAL/RHEUMATOLOGICAL Hx Musculoskeletal Disorders: Yes - GASTROINTESTINAL Hx Gastrointestinal Disorders: Yes Hx Gall Bladder Disease: Yes (GALLSTONES s/p LAP TAJ about 6 yrs ago) - GENITOURINARY/GYNECOLOGICAL Hx Genitourinary Disorders: No Hx Sexually Transmitted Disorders: No - PSYCHIATRIC Hx Emotional Abuse: No Hx Physical Abuse: No Hx Substance Use: No - SURGICAL HISTORY Hx Surgeries: Yes - ANESTHESIA Hx Anesthesia Reactions: No Meds Allergies/Adverse Reactions: Allergies Allergy/AdvReac Type Severity Reaction Status Date / Time tetracycline Allergy RASH Verified 04/17/17 15:34 vancomycin Allergy RASH Verified 04/17/17 15:34 - Medications Medications: Current Medications Acetaminophen (Tylenol 325mg Tab) 650 mg PO Q4H PRN PRN Reason: Pain, Mild (1-3) Last Admin: 04/19/17 12:04 Dose: 650 mg Famotidine (Pepcid) 20 mg PO BID [facility] Last Admin: 04/19/17 09:37 Dose: 20 mg Hydromorphone HCl (Dilaudid) 0.5 mg IVP Q15M PRN PRN Reason: Pain, moderate (4-7) Stop: 04/19/17 20:34 Sodium Chloride (Sodium Chloride 0.9%) 1,000 mls @ 100 mls/hr IV .Q10H [facility] Last Admin: 04/18/17 17:48 Dose: 100 mls/hr Ceftriaxone Sodium (Rocephin 1 Gram Ivpb) 1 gm in 100 mls @ 100 mls/hr IVPB DAILY [facility] PRN Reason: Protocol Last Admin: 04/19/17 09:37 Dose: 100 mls/hr Lactated Ringer's (Lactated Ringer's) 1,000 mls @ 125 mls/hr IV .Q8H [facility] Stop: 04/19/17 20:46 Levothyroxine Sodium (Synthroid) 100 mcg PO 0600 [facility] Last Admin: 04/19/17 05:07 Dose: 100 mcg Ondansetron HCl (Zofran Inj) 4 mg IVP ONCE PRN PRN Reason: Nausea/Vomiting Oxycodone/Acetaminophen (Percocet 5/325 Mg Tab) 1 tab PO Q4H PRN PRN Reason: Pain, moderate (4-7) Stop: 04/21/17 12:03 Last Admin: 04/19/17 14:45 Dose: 1 tab Tamsulosin HCl (Flomax) 0.4 mg PO DAILY [facility] Last Admin: 04/19/17 09:37 Dose: 0.4 mg Results - Vital Signs Recent Vital Signs: Last Vital Signs Temp 98 F 04/19/17 18:32 Pulse 69 04/19/17 18:32 Resp 18 04/19/17 18:32 BP 128/80 04/19/17 18:32 Pulse Ox 98 04/19/17 18:32 - Labs Result Diagrams: 04/19/17 06:30 04/19/17 06:30 Labs: Laboratory Results - last 24 hr 04/18/17 04/19/17 04/19/17 23:00 06:30 06:30 WBC RBC Hgb Hct MCV MCH MCHC RDW Plt Count MPV Sodium 143 Potassium 3.9 Chloride 109 H Carbon Dioxide 25 Anion Gap 13 BUN 12 Creatinine 0.8 Est GFR ( Amer) > 60 Est GFR (Non-Af Amer) > 60 Random Glucose 85 Hemoglobin A1c 5.6 Calcium 8.4 Total Bilirubin 0.2 AST 50 H ALT 59 H Alkaline Phosphatase 58 Total Protein 5.8 Albumin 3.1 Globulin 2.7 Albumin/Globulin Ratio 1.2 Triglycerides 53 Cholesterol 149 LDL Cholesterol Direct 87 HDL Cholesterol 42 TSH 3rd Generation Urine Color Yellow Urine Appearance Clear Urine pH 6.0 Ur Specific [place] 1.025 Urine Protein Negative Urine Glucose (UA) Negative Urine Ketones Negative Urine Blood Negative Urine Nitrate Negative Urine Bilirubin Negative Urine Urobilinogen 0.2 Ur Leukocyte Esterase Negative 04/19/17 04/19/17 06:30 06:30 WBC 3.6 L D RBC 3.97 Hgb 10.7 L D Hct 33.5 L MCV 84.4 MCH 27.0 MCHC 31.9 RDW 13.5 Plt Count 221 MPV 9.6 Sodium Potassium Chloride Carbon Dioxide Anion Gap BUN Creatinine Est GFR ( Amer) Est GFR (Non-Af Amer) Random Glucose Hemoglobin A1c Calcium Total Bilirubin AST ALT Alkaline Phosphatase Total Protein Albumin Globulin Albumin/Globulin Ratio Triglycerides Cholesterol LDL Cholesterol Direct HDL Cholesterol TSH 3rd Generation 38.80 H Urine Color Urine Appearance Urine pH Ur Specific [place] Urine Protein Urine Glucose (UA) Urine Ketones Urine Blood Urine Nitrate Urine Bilirubin Urine Urobilinogen Ur Leukocyte Esterase Assessment & Plan - Assessment and Plan (Free Text) Assessment: IMP: R renal calculus Back pain full note to be dictated - Date & Time Date: 04/19/17 Time: 17:15
--- NOTE | 2017-04-19 18:47 | PCM.SURG1 ---
Surgeon's Initial Post Op Note - Surgeon's Notes Surgeon: Randall Casanova [employer] Rental Clerk: none Type of Anesthesia: General LMA Pre-Operative Diagnosis: R renal calculus Operative Findings: same Post-Operative Diagnosis: same Operation Performed: cysto, R rtg pyelogram, insertion of R ureteral stent Specimen/Specimens Removed: urine Estimated Blood Loss: EBL {In ML}: 0 Blood Products Given: N/A Drains Used: No Drains Post-Op Condition: Good Date of Surgery/Procedure: 04/19/17 Time of Surgery/Procedure: 18:47
--- NOTE | 2017-04-20 04:52 | PN ---
DATE: SUBJECTIVE: The patient is a 51-year-old female. The patient is seen and examined on the bedside, looking comfortable, was waiting to go for cystoscopy, feeling better. No nausea or vomiting. No hematuria or hematochezia. No swelling of the leg. PHYSICAL EXAMINATION: VITAL SIGNS: Temperature 98, pulse 61, blood pressure 151/85, respiratory rate 18. HEENT: Head is normocephalic and atraumatic. Eyes, PERRLA. Extraocular muscles are intact. Conjunctivae are clear. Nose is patent. Mucous membranes are moist. NECK: Supple. LUNGS: Clear to auscultation. ABDOMEN: Soft. Bowel sounds present. No organomegaly. EXTREMITIES: No edema. No cyanosis. NEUROLOGIC: The patient is awake and alert. Moving all 4 extremities. No focal deficits. MEDICATIONS: Flomax, Pepcid, NS, Synthroid, Tylenol, and Zofran. LABORATORY DATA: White blood cells 3.6, hemoglobin 10.7, hematocrit 33.5, and platelets 221. Sodium 143, potassium 3.9, BUN 12, creatinine 0.8. Hemoglobin A1c 5.6. AST 50, ALT 59. ASSESSMENT AND PLAN: Ms. Nadine Verduzco is a 51-year-old female with leukopenia, anemia, hyperchloremia, abnormal liver function test, hypothyroidism, seen by Dr. Aristeo Casanova. The patient has right renal calculus, back pain. Planned for cystoscopy today by Dr. Aristeo Casanova. Cysto done with right pyelogram, infection of right ureteral stent, history of migraine, asthma, sleep apnea syndrome, multinodular goiter, thyroid problems, gallstones, status post laparoscopic cholecystectomy 6 years ago, tubal ligation. There is an 8 mm non-obstructing right renal calculus. There is no hydronephrosis bilaterally, no obstructive calculi identified within the ureters bilaterally. Diverticulosis. Urologist is on the case. Gastrointestinal and deep venous thrombosis prophylaxes. Repeat labs. We will follow up. Dayanara Lassiter MD MAYKEL
[2017-04-20] MEDS: Sodium Chloride 0.9% 1,000 ML IV SCH (05:52)
[2017-04-20] MEDS: Levothyroxine 100 MCG TAB PO SCH (05:52)
[2017-04-20] MEDS: Oxycodone/Acetaminophen 5/325 mg Tab PO PRN ×2 (05:52→14:15)
[2017-04-20 07:15] LABS: HEMOGLOBIN 11.5 g/dL (12.0-16.0); MEAN CORPUSCULAR HEMOGLOBIN 27.2 pg (25.0-35.0); MEAN CORPUSCULAR HGB CONC 32.8 g/dl (31.0-37.0); MEAN PLATELET VOLUME 9.6 fl (7.0-11.0); RBC 4.23 10^6/uL (3.5-6.1); RED CELL DISTRIBUTION WIDTH 13.2 % (11.5-14.5); WHITE BLOOD COUNT 5.1 10^3/ul (4.5-11.0)
[2017-04-20 08:03] LABS: BLOOD UREA NITROGEN 9 mg/dL (7-21); GFR AFRICAN-AMERICAN > 60; GFR NON-AFRICAN AMERICAN > 60
[2017-04-20 08:14] VITALS: BP 130/81; PULSE 67; RESP 20; TEMP 97.8
[2017-04-20] MEDS: cefTRIAXone 1 gm 1 GM/100 ML BAG IVPB SCH (09:26)
--- NOTE | 2017-04-20 14:31 | RAD ---
PROCEDURE: Fluoroscopy up to 1 hour HISTORY: RETROGRADE PYELOGRAM / STENT INSERTION (RIGHT) COMPARISON: TECHNIQUE: Fluoroscopy was provided in the operating room. 183 seconds. Twelve images submitted FINDINGS: The study shows placement of a right ureteral stent IMPRESSION: As above
--- NOTE | 2017-04-20 21:12 | OP ---
PROCEDURE DATE: 04/19/2017 UROLOGY OPERATIVE REPORT PREOPERATIVE DIAGNOSIS: Right renal calculus. POSTOPERATIVE DIAGNOSIS: Right renal calculus. PROCEDURE: Cystoscopy. Right retrograde pyelogram. Insertion of right ureteral stent. Exam under anesthesia. Procedure was performed under video endoscopic control as well as under fluoroscopic control with C-arm. DESCRIPTION OF PROCEDURE: As follows: The patient was placed in lithotomy position. Genitalia prepped and draped sterilely. Anesthesia was provided by the anesthesiologist. A 22-Polish cystoscope sheath was introduced under direct vision. Urethra and bladder were inspected with 30-degree lens. FINDINGS: The urethral caliber was narrowed and required dilation with the cystoscope obturator and sheath. The bladder demonstrated no tumor or stone. The ureteral orifice was normal position and shape. There was mild bladder trabeculation. There was no bladder diverticulum. The 0.035 inch guidewire inserted into the ureteral orifice and passed up to level of the kidney. of the abdomen revealed the upper pole, no calculus. Iodinated contrast was instilled through an open-ended catheter which had been passed over the guidewire. The guidewire was then inserted. There was mild hydronephrosis. A 6-Polish multi-length stent was inserted over the guidewire. Proper position was confirmed under fluoroscopy and endoscopy. The guidewire was removed and the stent was left in place. The bladder was then drained, cystoscope sheath removed. Exam under anesthesia was performed. There was no abnormal pelvic mass fixation or induration.. The patient tolerated the procedure without complication. Magdalena Casanova MD
--- NOTE | 2017-04-21 02:21 | CARD ---
APPROVED REPORT EKG Measurement Heart [id number] <Conclusion> Normal sinus rhythm Normal ECG
--- NOTE | 2017-04-21 08:10 | CON ---
DATE: 04/19/2017 UROLOGY CONSULTATION REQUESTED BY: Dr. Lassiter. REASON FOR CONSULTATION: Renal colic. Urology consultation filled by Dr. Magdalena Casanova. HISTORY OF PRESENT ILLNESS: The patient is a 51-year-old female with right flank pain good health. The patient presents with right flank pain of several days duration. Patient reports no hematuria. No fever or . Patient has good urinary stream and good control. No history of previous urolithiasis. The patient also reports some mid back pain as well. Patient reports the pain is sometimes worse with level of activity. Patient presented to the Emergency Room. She was found to have a renal stone. See the attached report. The patient has history of urinary frequency. She has history of urinary tract infection. Patient has a history of previous labor and delivery. Patient has history of sleep apnea. Possible history of asthma as well. Patient works as a medical record clerk. No history of diabetes. pain is persisted since patient has been in the hospital. Patient has required analgesics. ALLERGIES: PATIENT REPORTS ALLERGY TO PENICILLIN. PHYSICAL EXAMINATION: GENERAL: Patient is a well-developed, well-nourished female. Patient is in distress secondary to the right flank pain. ABDOMEN: Soft, nontender, nondistended. Mild CVA tenderness. LABORATORY DATA: See attached report. CAT scan is reviewed. There is an 8 mm right upper pole renal calculus. IMPRESSION: Right flank pain, right renal calculus. The pain may be secondary to urolithiasis. Pain may also be secondary to musculoskeletal disease. I explained these findings to the patient. I explained the options of therapy regarding the stone. Patient prefers to have a stent inserted. to lithotripsy to follow. Options of therapy, I have explained. Patient prefers stent insertion. Risks, benefits and alternatives have been explained to the patient. Patient is also explained regarding the temporary nature of the stent. Magdalena Casanova MD cc: Dr. Lassiter
== END 2017-04-20 20:06 | disposition home or self-care (01) | DRG 694 ==
LOC: ED 14:46 → ERH 21:48 → 5RNO 04-18 00:21
PROVIDERS: ADMIT Internal Medicine; ATTEND Internal Medicine
PROC: BT1D1ZZ Fluoroscopy of Right Kidney, Ureter and Bladder using Low Osmolar Contrast (ICD-10-PCS; 2017-04-19)
PROC: 0T768DZ Dilation of Right Ureter with Intraluminal Device, Via Natural or Artificial Opening Endoscopic (ICD-10-PCS; principal; 2017-04-19 18:00)
DX: N13.2 Hydronephrosis with renal and ureteral calculous obstruction (principal); E87.8 Other disorders of electrolyte and fluid balance, not elsewhere classified; D64.9 Anemia, unspecified; D72.819 Decreased white blood cell count, unspecified; E03.9 Hypothyroidism, unspecified; F17.200 Nicotine dependence, unspecified, uncomplicated; G47.30 Sleep apnea, unspecified; J45.909 Unspecified asthma, uncomplicated; K57.90 Diverticulosis of intestine, part unspecified, without perforation or abscess without bleeding; N32.89 Other specified disorders of bladder; Z87.440 Personal history of urinary (tract) infections; Z90.49 Acquired absence of other specified parts of digestive tract; Z98.51 Tubal ligation status; Z88.1 Allergy status to other antibiotic agents; Z88.0 Allergy status to penicillin